=== PATIENT | male | born 1950 | race Caucasian/White ===

== ENCOUNTER 2023-01-13 11:34 | Emergency (ER) | payer SELFPAY ==
[~2023-01-13] VITALS: Ht 175.3 cm; Wt 86.4 kg
[~2023-01-13 11:34] MED LIST: MULTI VITAMINS1 TAB PO; NORCO 325 MG-51 TAB PO
[2023-01-13 11:40] VITALS: TEMP 97.6
[2023-01-13 13:04] VITALS: BP 149/97; PULSE 70
== END 2023-01-13 13:09 | disposition home or self-care (01) ==
LOC: COL.ER 11:34
DX: S01.81XA Laceration without foreign body of other part of head, initial encounter (principal); S06.0X9A Concussion with loss of consciousness of unspecified duration, initial encounter; Z23 Encounter for immunization; W22.8XXA Striking against or struck by other objects, initial encounter